=== PATIENT | male | born 1970 | race Caucasian/White ===

== ENCOUNTER 2020-03-12 18:05 | Emergency (ER) | payer OTHER ==
[2020-03-12 18:25] LABS: BILIRUBIN,URINE NEGATIVE (NEGATIVE); GLUCOSE, URINE (UA) NEGATIVE (NEGATIVE); KETONES,URINE (UA) NEGATIVE (NEGATIVE); LEUKOCYTE ESTERASE, URINE NEGATIVE (NEGATIVE); NITRITE,URINE NEGATIVE (NEGATIVE); OCCULT BLOOD,URINE NEGATIVE (NEGATIVE); PH,URINE 6.5 PH (5.0-7.5); PROTEIN,URINE NEGATIVE (NEGATIVE); UROBILINOGEN,URINE 0.2 (NORMAL) E.U./dL (NORMAL)
[2020-03-12 18:35] LABS: CLARITY,URINE CLEAR (CLEAR)
[2020-03-12 18:37] LABS: BASOPHILS # (AUTO) 0.1 10^3/uL (0.0-0.1); BASOPHILS % (AUTO) 0.6 %; EOSINOPHILS # (AUTO) 0.2 10^3/uL (0.0-0.7); EOSINOPHILS % (AUTO) 3.1 %; HGB - HEMOGLOBIN 14.4 g/dL (14.0-18.0); LYMPHOCYTES # (AUTO) 2.4 10^3/uL (1.5-3.5); LYMPHOCYTES % (AUTO) 30.7 %; MEAN CORPUSCULAR HEMOGLOBIN 28.2 pg (27.0-31.0); MEAN CORPUSCULAR HGB CONC 32.6 g/dL (32.0-36.0); MEAN CORPUSCULAR VOLUME 86.5 fL (80.0-94.0); MONOCYTES # (AUTO) 0.5 10^3/uL (0.0-1.0); MONOCYTES % (AUTO) 6.9 %; NEUTROPHILS # (AUTO) 4.6 10^3/uL (1.5-6.6); NEUTROPHILS % (AUTO) 58.3 %; PLT - PLATELET COUNT 280 10^3/uL (130-450); RED BLOOD COUNT 5.11 10^6/uL (4.70-6.10); RED CELL DISTRIBUTION WIDTH 12.2 % (12.0-15.0); WHITE BLOOD COUNT 7.8 x10^3/uL (4.8-10.8)
[2020-03-12] MEDS ORDERED: IOVERSOL 320 100 ML VIAL IVP ONE ×2 (18:40→19:10)
[2020-03-12 18:48] LABS: ALBUMIN 4.7 g/dL (3.2-5.5); ALBUMIN/GLOBULIN RATIO 1.5 (1.0-2.2); BILIRUBIN,TOTAL 0.5 mg/dL (0.2-1.0); CALCIUM 9.9 mg/dL (8.5-10.3); CREATININE 1.1 mg/dL (0.6-1.2); TOTAL PROTEIN 7.8 g/dL (6.7-8.2)
--- NOTE | 2020-03-12 18:54 | ED Physician Documentation ---
PD HPI ABD PAIN - Stated complaint Stated Complaint: ABD PX - Chief complaint Chief Complaint: Abd Pain - History obtained from History obtained from: Patient - History of Present Illness Timing - onset: Today Pain level max: 7 Pain level now: 5 Quality: Aching, Pain Location: LLQ Improved by: Laying still Worsened by: Moving, Palpation Associated symptoms: No: Fever, Nausea, Vomiting, Hematemesis, Diarrhea, Constipation, Melena, Hematochezia, Dysuria, Hematuria, Chest pain, Dizzy, Near syncope / syncope Similar symptoms before: Has not had sx before Recently seen: Not recently seen - Additional information Additional information: 49-year-old male presents to the emergency department left lower quadrant abdominal pain worsening throughout the day. Has never had similar symptoms previously. No fevers. No chills. No diarrhea. No constipation. Review of Systems Ten Systems: 10 systems reviewed and negative Constitutional: denies: Fever, Chills Throat: denies: Sore throat Cardiac: denies: Chest pain / pressure, Palpitations Respiratory: denies: Dyspnea, Cough GI: denies: Vomiting, Hematemesis, Bloody / black stool Skin: denies: Rash PD PAST MEDICAL HISTORY - Past Medical History Past Medical History: Yes Cardiovascular: Hypertension, Deep vein thrombosis - Present Medications Home Medications: Ambulatory Orders Medication Instructions Recorded Confirmed Ciprofloxacin HCl [Cipro] 500 mg PO BID #20 tablet 03/12/20 metroNIDAZOLE [Flagyl] 500 mg PO TID #30 tablet 03/12/20 - Allergies Allergies/Adverse Reactions: Allergies Allergy/AdvReac Type Severity Reaction Status Date / Time meperidine [From Demerol] Allergy Hives Verified 03/12/20 18:08 - Social History Does the pt smoke?: No Smoking Status: Never smoker Does the pt drink ETOH?: No Does the pt have substance abuse?: No PD ED PE NORMAL - Vitals Vital signs reviewed: Yes - General General: Alert and oriented X 3, No acute distress, Well developed/nourished - HEENT HEENT: Moist mucous membranes - Neck Neck: Supple, no meningeal sign - Cardiac Cardiac: RRR, Strong equal pulses - Respiratory Respiratory: No respiratory distress, Clear bilaterally - Abdomen Abdomen: Soft, Non distended, Other (Tender to palpation left lower quadrant and left flank. No peritoneal signs) - Derm Derm: Warm and dry - Extremities Extremities: No edema - Neuro Neuro: Alert and oriented X 3 Results - Vitals Vitals: Vital Signs - 24 hr 03/12/20 03/12/20 18:08 20:11 Temperature 36.5 C 36.6 C Heart Rate 131 H 72 Respiratory 20 18 Rate Blood Pressure 157/107 H 128/94 H O2 Saturation 100 100 Oxygen O2 Source Room air - Labs Labs: Laboratory Tests 03/12/20 03/12/20 03/12/20 18:12 18:22 18:22 WBC 7.8 RBC 5.11 Hgb 14.4 Hct 44.2 MCV 86.5 MCH 28.2 MCHC 32.6 RDW 12.2 Plt Count 280 MPV 9.0 Neut # (Auto) 4.6 Lymph # (Auto) 2.4 [facility] # (Auto) 0.5 Eos # (Auto) 0.2 Baso # (Auto) 0.1 Absolute Nucleated RBC 0.00 Nucleated RBC % 0.0 Sodium 139 Potassium 3.6 Chloride 100 L Carbon Dioxide 28 Anion Gap 11.0 BUN 16 Creatinine 1.1 Estimated GFR (MDRD) 71 L Glucose 104 H Calcium 9.9 Total Bilirubin 0.5 AST 20 ALT 21 Alkaline Phosphatase 60 Total Protein 7.8 Albumin 4.7 Globulin 3.1 Albumin/Globulin Ratio 1.5 Lipase 40 Urine Color YELLOW Urine Clarity CLEAR Urine pH 6.5 Ur Specific Protection 1.010 Urine Protein NEGATIVE Urine Glucose (UA) NEGATIVE Urine Ketones NEGATIVE Urine Occult Blood NEGATIVE Urine Nitrite NEGATIVE Urine Bilirubin NEGATIVE Urine Urobilinogen 0.2 (NORMAL) Ur Leukocyte Esterase NEGATIVE Ur Microscopic Review NOT INDICATED Urine Culture Comments NOT INDICATED - Rads (name of study) CT abdomen pelvis Radiology: Prelim report reviewed, EMP read contemporaneously PD MEDICAL DECISION MAKING - ED course Complexity details: reviewed results, re-evaluated patient, considered differential, d/w patient ED course: Patient is a 49-year-old male who presents to the emergency department with left lower quadrant abdominal pain. He has diverticulitis. Discussed risks and benefits of antibiotics including C. difficile diarrhea. Also discussed that mild case of diverticulitis may not need antibiotics. The patient has elected to proceed with antibiotics and does understand the risks and benefits. It was recommended the patient be placed on Augmentin. Patient adamantly refuses Augmentin. States that it gave him diarrhea in the past. We discussed ciprofloxacin and Flagyl including side effects and multiple black box warnings. He discussed this with his who is a pharmacist, they accept these risks and would like the ciprofloxacin and Flagyl. This was prescribed. Patient counseled regarding signs and symptoms for which I believe and urgent re- evaluation would be necessary. Patient with good understanding of and agreement to plan and is comfortable going home at this time This document was made in part using voice recognition software. While efforts are made to proofread this document, sound alike and grammatical errors may occur. IMPRESSION: 1. Diverticulosis with short segment of acute diverticulitis involving the junction of the distal descending colon and proximal sigmoid colon. No evidence for perforation or abscess formation. There is minimal circumferential wall thickening of this segment likely related to inflammatory changes. Consider colonoscopy after resolution of acute findings to exclude possible underlying neoplastic process. 2. Small hiatal hernia. 3. Diffuse hepatic steatosis. 4. Normal appendix. Departure - Departure Disposition: 01 Home, Self Care Clinical Impression: Diverticulitis large intestine w/o perforation or abscess w/o bleeding Condition: Good Instructions: ED Diverticulitis Follow-Up: your,doctor in 1 week [Other] Prescriptions: Ciprofloxacin HCl [Cipro] 500 mg PO BID #20 tablet metroNIDAZOLE [Flagyl] 500 mg PO TID #30 tablet Comments: Return if you worsen. Take all antibiotics until gone. You should start to improve within the next 24 to 48 hours. You should have a colonoscopy after resolution of your symptoms to exclude any underlying abnormalities. This can be arranged with your doctor It was recommended that you take Augmentin for this condition due to the im proved safety profile over ciprofloxacin. You have refused the Augmentin and have elected ciprofloxacin and flagyl. You are aware that there are several black box warnings on ciprofloxacin including tendon rupture, tendonitis and permanent neuropsychological damage have been reported. You are also aware that there is evidence that mild cases of diverticulitis may not require antibiotics and that all antibiotics have side effects.
[2020-03-12] MEDS ORDERED: KETOROLAC 30 MG/ML VIAL IVP STA (19:16)
--- NOTE | 2020-03-12 19:40 | CT Report ---
PROCEDURE: Abdomen/Pelvis W INDICATIONS: LLQ abd pain CONTRAST: IV CONTRAST: Optiray 320 ml: 100 PO CONTRAST: *NO PO CONTRAST TECHNIQUE: After the administration of weight appropriate dose of intravenous contrast, 5 mm thick sections acqu ired from the diaphragms to the symphysis. 5 mm thick coronal and sagittal reformats were acquired. For radiation dose reduction, the following was used: automated exposure control, adjustment of mA and/or kV according to patient size. COMPARISON: None. FINDINGS: Image quality: Excellent. ABDOMEN: Lung bases: Minimal bibasilar atelectasis. Heart size is normal. Small hiatal hernia. Solid organs: Liver and spleen are normal in size and enhancement. Hepatic steatosis. Gallbladder i s unremarkable Biliary system is non dilated. Pancreas enhances normally. No adrenal nodules. Kid neys demonstrate normal size and enhancement, without hydronephrosis. Peritoneum and bowel: Scattered colonic diverticulosis. There is mild peridiverticular inflammation surrounding the junction of the distal descending colon and proximal sigmoid colon. Minimal wall thic kening likely related to inflammatory changes. No evidence for perforation or abscess formation. Richelle cody the visualized bowel loops demonstrate normal wall thickness and caliber. No free fluid or air . Normal appendix. Nodes and vessels: No retroperitoneal or mesenteric adenopathy by size criteria. Aorta and inferior vena cava are normal in size. Miscellaneous: No ventral hernias. PELVIS: Genitourinary: Bladder wall thickness is normal. Miscellaneous: No inguinal hernias or adenopathy. Bones: No suspicious bony lesions. No acute vertebral body compression fractures. IMPRESSION: 1. Diverticulosis with short segment of acute diverticulitis involving the junction of the distal estella cending colon and proximal sigmoid colon. No evidence for perforation or abscess formation. There is minimal circumferential wall thickening of this segment likely related to inflammatory changes. Consi theo colonoscopy after resolution of acute findings to exclude possible underlying neoplastic process. 2. Small hiatal hernia. 3. Diffuse hepatic steatosis. 4. Normal appendix. Reviewed by: Roberto Ferro MD on 03/12/2020 6:39 PM [place] Approved by: Roberto Ferro MD on 03/12/2020 6:39 PM [place] Station ID: [id number]
[2020-03-12] MEDS ORDERED: AMOX/CLAV 875 MG/125 MG TABLET PO STA (19:55)
[2020-03-12 20:28] VITALS: BP 128/94
[2020-03-12] MEDS ORDERED: CIPROFLOXACIN 250 MG TABLET PO STA (20:30)
[2020-03-12] MEDS ORDERED: metroNIDAZOLE 250 MG TABLET PO STA (20:30)
== END 2020-03-12 20:46 | disposition home or self-care (01) ==
LOC: ED 18:05
DX: K57.32 Diverticulitis of large intestine without perforation or abscess without bleeding (principal); I10 Essential (primary) hypertension; Z86.718 Personal history of other venous thrombosis and embolism
CPT/HCPCS: 36415; 74177; 80053; 81003; 83690; 85025; 96374; 99284; A9270; Q9967; 81001; 87086

== ENCOUNTER 2020-04-02 14:27 | Emergency (ER) | payer OTHER ==
[2020-04-02] MEDS ORDERED: SODIUM CHLORIDE 0.9% 1,000 ML IV STA ×2 (15:00)
[2020-04-02] MEDS ORDERED: ACETAMINOPHEN 1,000 MG/100 ML 100 ML IV ONE (15:10)
[2020-04-02] MEDS ORDERED: HYOSCYAMINE SL 0.125 MG TABLET SL STA (15:10)
--- NOTE | 2020-04-02 15:10 | ED Physician Documentation ---
History of Present Illness - Stated complaint Stated Complaint: ABDOMINAL PX - Chief complaint Chief Complaint: Abd Pain - History obtained from History obtained from: Patient - History of Present Illness Timing: Other (1 month) Pain level max: 8 Pain level now: 6 - Additonal information Additional information: Patient is a 49-year-old male who presents to the emergency department after being diagnosed with diverticulitis about a month ago. He was placed on Cipro and Flagyl. He states that he developed esophageal reflux and diarrhea from being on the Cipro and Flagyl. He states increased diarrhea yesterday, every 10 to 20 minutes. He went [facility] [employer] [facility] today, his PCP was going to perform a CT scan, but reportedly were out of iodinated contrast. Patient was sent here for evaluation. Patient took Imodium this morning and has not had a bowel movement since about 4 AM. No fevers. No chills. States the abdominal pain has worsened. Nothing makes it better or worse. Review of Systems Constitutional: denies: Fever, Chills Nose: denies: Rhinorrhea / runny nose, Congestion Respiratory: denies: Cough GI: denies: Abdominal Pain, Nausea, Vomiting, Diarrhea Skin: denies: Rash Musculoskeletal: denies: Neck pain, Back pain Neurologic: denies: Headache PD PAST MEDICAL HISTORY - Past Medical History Cardiovascular: Hypertension, Deep vein thrombosis GI: Diverticulitis - Present Medications Home Medications: Ambulatory Orders Medication Instructions Recorded Confirmed No Known Home Medications 04/02/20 04/02/20 - Allergies Allergies/Adverse Reactions: Allergies Allergy/AdvReac Type Severity Reaction Status Date / Time meperidine [From Demerol] Allergy Hives Verified 04/02/20 14:47 - Social History Does the pt smoke?: No Smoking Status: Never smoker Does the pt drink ETOH?: No Does the pt have substance abuse?: No PD ED PE NORMAL - Vitals Vital signs reviewed: Yes - General General: Alert and oriented X 3, No acute distress - HEENT HEENT: Moist mucous membranes - Neck Neck: Supple, no meningeal sign - Cardiac Cardiac: RRR - Respiratory Respiratory: No respiratory distress, Clear bilaterally - Abdomen Abdomen: Other (Diffusely tender to palpation across the lower abdomen. No peritoneal signs) - Back Back: No CVA TTP - Derm Derm: Warm and dry - Neuro Neuro: Alert and oriented X 3 - Psych Psych: Normal mood, Normal affect Results - Vitals Vitals: Vital Signs - 24 hr 04/02/20 04/02/20 14:43 15:59 Temperature 36.8 C Heart Rate 90 77 Respiratory 16 20 Rate Blood Pressure 144/100 H 132/92 H O2 Saturation 99 100 Oxygen O2 Source Room air - Labs Labs: Laboratory Tests 04/02/20 04/02/20 15:13 15:13 WBC 9.6 RBC 5.45 Hgb 15.4 Hct 46.9 MCV 86.1 MCH 28.3 MCHC 32.8 RDW 12.5 Plt Count 303 MPV 8.8 Neut # (Auto) 6.6 Lymph # (Auto) 1.8 [place] # (Auto) 0.8 Eos # (Auto) 0.3 Baso # (Auto) 0.1 Absolute Nucleated RBC 0.00 Nucleated RBC % 0.0 Sodium 138 Potassium 3.7 Chloride 102 Carbon Dioxide 27 Anion Gap 9.0 BUN 16 Creatinine 1.1 Estimated GFR (MDRD) 71 L Glucose 89 Calcium 9.5 Total Bilirubin 0.8 AST 27 ALT 35 Alkaline Phosphatase 56 Total Protein 7.3 Albumin 4.4 Globulin 2.9 Albumin/Globulin Ratio 1.5 Lipase 26 - Rads (name of study) CT abd/pelvis Radiology: Prelim report reviewed, EMP read contemporaneously, See rad report PD MEDICAL DECISION MAKING - ED course Complexity details: reviewed results, re-evaluated patient, considered differential, d/w patient ED course: 49-year-old male presents to the emergency department with continued abdominal pain after completing a course of antibiotics with Cipro and Flagyl for Diverticulitis. Patient states that he took Imodium this morning and has not had diarrhea at all today. No fevers. No chills. Pain feels better after IV Ofirmev and Levsin. No leukocytosis. Unable to give a stool sample here. He states that he will follow-up with his doctor tomorrow for stool sample. Patient counseled regarding signs and symptoms for which I believe and urgent re-evaluation would be necessary. Patient with good understanding of and agreement to plan and is comfortable going home at this time This document was made in part using voice recognition software. While efforts are made to proofread this document, sound alike and grammatical errors may occur. IMPRESSION: Mild colitis involving the hepatic flexure of the colon and extending contiguously across the proximal two thirds of the transverse colon. No evidence of acute diverticulitis or abscess formation. Normal appendix found right lower quadrant. No free fluid identified. Departure - Departure Disposition: 01 Home, Self Care Clinical Impression: Colitis Condition: Good Instructions: ED Abdominal Pain Unkn Cause Follow-Up: JOSE BURCH MD [Primary Care Provider] - Within 1 week Comments: Drink plenty of fluids. You can try yogurt with live cultures and probiotics. Follow up with your doctor for further care. As we were unable to collect a stool sample tonight, you should follow up with your doctor tomorrow so they can call in an order for stool culture and c. diff testing. The stool sample in a urine cup needs to be returned as soon as possible to the lab. Return if you worsen.
[2020-04-02] MEDS ORDERED: IOVERSOL 320 100 ML VIAL IVP ONE ×2 (15:17→15:52)
[2020-04-02 15:24] LABS: BASOPHILS # (AUTO) 0.1 10^3/uL (0.0-0.1); BASOPHILS % (AUTO) 0.7 %; EOSINOPHILS # (AUTO) 0.3 10^3/uL (0.0-0.7); EOSINOPHILS % (AUTO) 3.3 %; HGB - HEMOGLOBIN 15.4 g/dL (14.0-18.0); LYMPHOCYTES # (AUTO) 1.8 10^3/uL (1.5-3.5); LYMPHOCYTES % (AUTO) 18.5 %; MEAN CORPUSCULAR HEMOGLOBIN 28.3 pg (27.0-31.0); MEAN CORPUSCULAR HGB CONC 32.8 g/dL (32.0-36.0); MEAN CORPUSCULAR VOLUME 86.1 fL (80.0-94.0); MEAN PLATELET VOLUME 8.8 fL (7.4-11.4); MONOCYTES # (AUTO) 0.8 10^3/uL (0.0-1.0); MONOCYTES % (AUTO) 8.2 %; NEUTROPHILS # (AUTO) 6.6 10^3/uL (1.5-6.6); NEUTROPHILS % (AUTO) 69.1 %; PLT - PLATELET COUNT 303 10^3/uL (130-450); RED BLOOD COUNT 5.45 10^6/uL (4.70-6.10); RED CELL DISTRIBUTION WIDTH 12.5 % (12.0-15.0); WHITE BLOOD COUNT 9.6 x10^3/uL (4.8-10.8)
[2020-04-02 15:35] LABS: ALBUMIN 4.4 g/dL (3.2-5.5); ALBUMIN/GLOBULIN RATIO 1.5 (1.0-2.2); BILIRUBIN,TOTAL 0.8 mg/dL (0.2-1.0); CALCIUM 9.5 mg/dL (8.5-10.3); CREATININE 1.1 mg/dL (0.6-1.2); TOTAL PROTEIN 7.3 g/dL (6.7-8.2)
--- NOTE | 2020-04-02 16:44 | CT Report ---
PROCEDURE: Abdomen/Pelvis W INDICATIONS: diffuse abd pain, h/o diverticulitis CONTRAST: IV CONTRAST: Optiray 320 ml: 100 PO CONTRAST: *NO PO CONTRAST TECHNIQUE: After the administration of nonionic contrast, 5 mm thick sections acquired from the diaphragms to th e symphysis. 5 mm thick coronal and sagittal reformats were acquired. For radiation dose reduction, the following was used: automated exposure control, adjustment of mA and/or kV according to patient size. COMPARISON: Similar CT 03/12/2020. FINDINGS: Image quality: Excellent. ABDOMEN: Lung bases: Lung bases are clear. Heart size is normal. Solid organs: Liver and spleen are normal in size and enhancement. Gallbladder appears normal Bili marc system is non dilated. Pancreas enhances normally. No adrenal nodules. Kidneys demonstrate nor mal size and enhancement, without hydronephrosis. Peritoneum and bowel: Bowel loops demonstrate normal wall thickness and caliber except at the hepati c flexure and proximal two thirds of the transverse colon where mild mural thickening is present with in appearance most consistent with mild colitis.. No free fluid or air. Nodes and vessels: No retroperitoneal or mesenteric adenopathy by size criteria. Aorta and inferior vena cava are normal in size. Miscellaneous: No ventral hernias. PELVIS: Genitourinary: Bladder wall thickness is normal. Miscellaneous: No inguinal hernias or adenopathy. Normal appendix found right lower quadrant near t he iliac crest level on the right. No evidence of active diverticulitis at this time. Bones: No suspicious bony lesions. No vertebral body compression fractures. IMPRESSION: Mild colitis involving the hepatic flexure of the colon and extending contiguously acros s the proximal two thirds of the transverse colon. No evidence of acute diverticulitis or abscess for mation. Normal appendix found right lower quadrant. No free fluid identified. Reviewed by: Orville Stewart MD on 04/02/2020 4:42 PM PST Approved by: Orville Stewart MD on 04/02/2020 4:42 PM PST Station ID: [id number]
[2020-04-02 17:26] VITALS: BP 126/93
== END 2020-04-02 17:31 | disposition home or self-care (01) ==
LOC: ED 14:27
DX: K52.9 Noninfective gastroenteritis and colitis, unspecified (principal); Z87.19 Personal history of other diseases of the digestive system; I10 Essential (primary) hypertension
CPT/HCPCS: 36415; 74177; 80053; 83690; 85025; 87493; 96361; 96365; 99284; A9270; J0131; Q9967